=== PATIENT | male | born 1945 | race Caucasian/White ===

== ENCOUNTER 2018-08-17 21:13 | Observation (INO) | payer BC, MEDICARE ==
[~2018-08-17 21:13] MED LIST: Dexamethasone 20 MG/5 ML VIAL ONE; Lidocaine 1% PF 5 ML VIAL ONE; Ondansetron PF 4 MG/2 ML Vial ONE; PROPOFOL 200 MG/20 ML VIAL ONE; ePHEDrine 50 MG/ML VIAL ONE
[2018-08-17] MEDS ORDERED: Fentanyl 100 MCG/2 ML VIAL ONE (21:53)
[2018-08-17] MEDS ORDERED: Bupivacaine PF 0.5% 30 ML VIAL ONE (22:01)
[2018-08-17] MEDS ORDERED: Bacitracin Zinc Ointment 30 gm TUBE ONE (22:01)
[2018-08-17] MEDS ORDERED: Fentanyl 100 MCG/2 ML VIAL SLOW IVP PRN (22:30)
[2018-08-17] MEDS ORDERED: Ondansetron PF 4 MG/2 ML Vial IV PRN (22:30)
[2018-08-17] MEDS ORDERED: Communication Order-Pharmacy FS SCH (22:30)
[2018-08-17] MEDS ORDERED: Meperidine HCl/PF 25 MG/ML VIAL IM PRN (22:36)
[2018-08-17] MEDS ORDERED: Ketorolac Tromethamine 30 MG/ML VIAL IVP PRN (22:36)
[2018-08-18] MEDS ORDERED: Ondansetron HCl/PF 4 MG/2 ML Vial IVP PRN (00:22)
[2018-08-18 01:16] VITALS: BMI 36.6
[2018-08-18 05:08] VITALS: TEMP 98.3
--- NOTE | 2018-08-18 08:44 | RAD ---
EXAM: 3 views of the left middle finger HISTORY: Distal phalanx fracture COMPARISON: 08/17/2018 FINDINGS: Limited intraoperative fluoroscopic views shows 2 K wires spanning the comminuted fracture of the distal phalanx of the middle finger. IMPRESSION: Status post percutaneous pinning of distal phalanx fracture of the middle finger
[2018-08-18] MEDS ORDERED: TETANUS AND DIPHTHERIA TOX/PF 0.5 ML DISP.SYRIN IM SCH (09:00)
[2018-08-18] MEDS ORDERED: Aspirin 81 mg Enteric Coated Tablet PO SCH (09:00)
[2018-08-18] MEDS ORDERED: Vancomycin HCl 1 GM in Premix Bag 1 BAG IVPB SCH (09:00)
[2018-08-18 11:05] VITALS: BP 163/88
--- NOTE | 2018-08-20 08:44 | OP ---
DATE OF PROCEDURE: 08/18/2018 DATE OF SURGERY: Surgery finished on the August 18, 2018, began on August 17, 2018. PREOPERATIVE DIAGNOSES: 1. Left ring finger open, grade 1 distal phalanx fracture secondary to crush injury at home. 2. Nail bed laceration. 3. A 3.0-cm wound, all these at the left ring finger. POSTOPERATIVE DIAGNOSES: 1. Left ring finger open, grade 1 distal phalanx fracture secondary to crush injury at home. 2. Nail bed laceration. 3. A 3.0-cm wound, all these at the left ring finger. PROCEDURES PERFORMED: 1. Removal of nail. 2. Repair of nail bed. 3. Debridement of material associated with open fracture. 4. Debridement of wound. 5. Closure of wound at the end of the procedure. 6. Open reduction and internal fixation of distal phalanx fracture. 7. Application of splint, short arm. 8. C-arm supervision by surgeon. ANESTHESIA: Augmented by 20 mL of 0.5% Marcaine block, metacarpophalangeal joint level at the left ring finger, 10 given prior to procedure and 10 given at closure. DESCRIPTION OF PROCEDURE: After successful general LMA technique, the limb was prepped and draped. Tourniquet time proved to be only 30 minutes. Once we had established site, side, procedure, and matched the consent and history, physical, we exsanguinated the limb, inflated the tourniquet to 250 mmHg pressure, immediately removed the nail. The nail removed revealed that the nail bed laceration was a nearly avulsion from the germinal matrix from the terminal tendon. We then were able to shotgun open the defect at the base of the nail, visualized the fracture, we used excision technique along with a curette, [place] blade, and the lavage of 5 L normal saline and Pulsavac pressure . The patient then had the debridement completed with irrigation of 3 L normal saline and Pulsavac pressure, we used tenotomy scissors to debride deep and incision technique the palmar 2 cm of the total 3 cm wound as well as the radial aspect of the wound. We then sutured the wound edges of the periungual laceration, there was no gross dirt particles remaining, and then we finished the nail bed repair. Once we finished the nail bed repair, we then passed 2 K-wires appropriately in bone from sagittal plane to secure fixation. The patient then had no evidence of anesthetic or operative complication. The tourniquet was deflated, the nail bed repair with a 5-0 chromic was completed, and now the digit was pink. . The patient then left the operating room without evidence of anesthetic or operative complications to recovery room. Please see dictation on Edy Fuller from date of surgery ended at 0020 hours on August 18, 2018. Job ID: [id number]
--- NOTE | 2018-08-20 11:09 | DIS ---
DATE OF ADMISSION: 08/18/2018 DATE OF DISCHARGE: 08/18/2018 ADMISSION DIAGNOSES: 1. Left ring finger grade 1 open distal phalanx fracture secondary to crush injury at home. 2. Nail bed laceration. 3. 3.3 cm wound. DISCHARGE DIAGNOSES: 1. Left ring finger grade 1 open distal phalanx fracture secondary to crush injury at home. 2. Nail bed laceration. 3. 3.3 cm wound. HOSPITAL COURSE: The patient was admitted to [facility] because of open fracture, had an urgent schedule in the emergency room, obtained the necessary despite limited anesthesia capability at this facility, and was able to obtain his surgery where he underwent that same evening removal of his nail, repair of his nail bed, debridement of all material associated with open fracture distal phalanx, debridement of wound, closure of the wound, open reduction internal fixation of distal phalanx, and application of a splint. C-arm was also used and supervised by the surgeon throughout. He went to the floor comfortable, had IV antibiotics for approximately 18 additional hours to include 2 doses of vancomycin. He had no nausea, vomiting, or diarrhea. He was discharged at this time. DISPOSITION: The patient will have a regular diet. Return to work with limitations of wearing a splint on his hand and will follow up in our clinic in 5 days for wound check and dressing change. Job ID: [id number]
--- NOTE | 2018-08-24 05:36 | PQF ---
[facility] POST DISCHARGE CLINICAL DOCUMENTATION IMPROVEMENT CLARIFICATION FORM l Todays Date: 08/24/18 l Patients Name ANGELA MORLEY l l Admit Date 08/18/18 l Disch Date 08/18/18 Bushel Worker Name Courtney Lloyd Email: [email or web address] Cell: [phone] To be completed by Bushel Worker: Present Clinical Indicators - Signs / Symptoms Results and Location in Medical Record [ ] Documentation of: [ ] [ ] Documentation of: [ ] [ ] Documentation of: [ ] [ ] Documentation of: [ ] [ ] Risks [ ] [ ] [ ] Treatment [ ] Removal and repair of nail and nailbed. Debridement of open fracture. ORIF of distal phalanx fracture. Query for the laterality and exact finger being treated. In the Operative Report, Anesthesia Record and ED Provider, left distal phalanx fracture of ring finger. From the H&P, right hand was documented whilst from Finger X-Ray Form, it was left distal phalanx fracture of middle finger was given. [ ] [ ] To be completed by Physician: NAZIA GUARDADO The documentation in this patients record requires clarification to ensure coding compliance and accuracy. Check the appropriate box and include in your discharge summary. [ ] [ ] [ ] [ ] Please check this box if this does not apply to this patient [ ] Unable to determine [ ] Other diagnosis: Review the following information and exercise your independent professional judgment in responding to the clarification. Based upon the clinical findings, risk factors, and treatment, please clarify if you are treating one of the above probable or suspected diagnoses. Physician Signature: Date Time MTDD
== END 2018-08-18 12:30 | disposition home or self-care (01) ==
LOC: ERS 21:13 → SURG A 22:28 → SDC/OP 22:50 → SURG A 08-18 00:12
PROVIDERS: ADMIT Orthopaedic Surgery Hand Surgery; ATTEND Orthopaedic Surgery Hand Surgery
PROC: 0PSV04Z Reposition Left Finger Phalanx with Internal Fixation Device, Open Approach (ICD-10-PCS; principal; 2018-08-17)
PROC: 0HQQXZZ Repair Finger Nail, External Approach (ICD-10-PCS; 2018-08-17)
DX: S67.195A Crushing injury of left ring finger, initial encounter (principal); S62.635B Displaced fracture of distal phalanx of left ring finger, initial encounter for open fracture; E11.9 Type 2 diabetes mellitus without complications; I10 Essential (primary) hypertension; Z79.2 Long term (current) use of antibiotics; Z79.84 Long term (current) use of oral hypoglycemic drugs; Z79.899 Other long term (current) drug therapy; Z96.651 Presence of right artificial knee joint; W23.0XXA Caught, crushed, jammed, or pinched between moving objects, initial encounter
CPT/HCPCS: 11760; 26765; 73140; 76000; 96365; 99284; G0378; J1100; J2001; J2405; J2704; J3010; J3370; J3490; S0020

== ENCOUNTER 2019-05-23 10:28 | Outpatient (CLI) | payer MEDICARE ==
[2019-05-23 12:24] LABS: #Eosinphils 0.1 thou/uL (0.0-0.7); #Lymphocytes 2.2 thou/uL (1.20-3.40); #Monocytes 0.4 thou/uL (0.11-0.59); #Neutrophils 4.4 thou/uL (1.40-6.50); %Basophils 0.6 % (0.0-1.0); %Eosinophils 1.6 % (0.0-10.0); %Lymphocytes 30.9 % (21.0-51.0); %Monocytes 5.8 % (0.0-10.0); %Neutrophils 61.1 % (42.0-75.0); Hemoglobin 14.2 g/dL (14.0-18.0); Mean Corpuscular HGB CONC 33.9 g/dL (32.0-36.0); Mean Corpuscular Hemoglobin 29.3 pg (27.0-31.0); Mean Corpuscular Volume 86.4 fL (78.0-98.0); Mean Platelet Volume 8.7 fL (7.4-10.4); Platelet Count 163 thou/uL (130-400); RBC Distribution Width 12.1 % (11.5-14.5); Red Blood Cell (RBC) Count 4.84 mill/uL (4.70-6.10); White Blood Cell (WBC) Count 7.1 thou/uL (4.8-10.8)
--- NOTE | 2019-05-24 08:59 | EKG ---
Test Reason : Blood Pressure : / mmHG Vent. Rate : 086 BPM Atrial Rate : 086 BPM P-R Int : 196 ms QRS Dur : 136 ms QT Int : 400 ms P-R-T Axes : 070 -66 019 degrees QTc Int : 478 ms Sinus rhythm with Premature atrial complexes Left axis deviation Right bundle branch block Anterior infarct , age undetermined Abnormal ECG No previous ECGs available Confirmed by DR. Gopal GOODSON MD ([id number]) on 05/24/2019 8:59:00 AM Referred By: BK Confirmed By:DR. Gopal GOODSON MD
== END 2019-05-23 10:29 | disposition home or self-care (01) ==
LOC: LABBT 10:28
PROVIDERS: ATTEND Orthopaedic Surgery Hand Surgery
DX: Z01.818 Encounter for other preprocedural examination (principal); L02.512 Cutaneous abscess of left hand; M89.9 Disorder of bone, unspecified
CPT/HCPCS: 85025; 93005; 93010

== ENCOUNTER 2019-05-27 11:32 | Day surgery (SDC) | payer MEDICARE ==
[2019-05-23 11:40] VITALS: BMI 37.3
[~2019-05-27 11:32] MED LIST changes: -Dexamethasone 20 MG/5 ML VIAL ONE; +Ketorolac Tromethamine 30 MG/ML VIAL ONE; +Labetalol HCl 100 MG/20 ML VIAL ONE; -Ondansetron PF 4 MG/2 ML Vial ONE; -ePHEDrine 50 MG/ML VIAL ONE
[2019-05-27] MEDS ORDERED: Bacitracin Zinc Ointment 30 gm TUBE ONE (13:04)
[2019-05-27] MEDS ORDERED: Bupivacaine PF 0.5% 30 ML VIAL ONE (13:04)
[2019-05-27] MEDS ORDERED: Sodium Chloride 0.9% 0 ML ONE (13:04)
[2019-05-27] MEDS ORDERED: Thrombin 5000 UNITS/5 ML VIAL ONE (13:04)
[2019-05-27] MEDS ORDERED: Fentanyl 100 MCG/2 ML VIAL ONE (13:07)
[2019-05-27] MEDS ORDERED: Ketamine 50 MG/ML (10ML VIAL) ONE (13:07)
[2019-05-27] MEDS ORDERED: Dexmedetomidine 200 MCG/2 ML VIAL ONE (13:30)
--- NOTE | 2019-05-27 16:14 | OP ---
DATE OF PROCEDURE: 05/27/2019 PREOPERATIVE DIAGNOSIS: Exostosis at abscess base, left ring finger ulnar aspect distal phalanx. POSTOPERATIVE DIAGNOSIS: Exostosis at abscess base, left ring finger ulnar aspect distal phalanx. FINDINGS: 1. Abscess abscess and the exostosis growing through and taking the place some of the germinal matrix, ulnar aspect of nail. 2. Ulnar one corner of the nail with very immature nail, very thin cover of the sterile matrix. No gross abscess seen. 3. Exostosis 3 x 0.5 cm. PROCEDURES PERFORMED: 1. Left ring finger ulnar distal phalanx debridement of wound down to include bone. 2. Exostosis excision, ostectomy, 3 x 0.15 cm of the same left ring finger ulnar distal phalanx aspect. SPECIMENS SENT: 1. Bone exostosis. 2. Culture. TOURNIQUET TIME: 8 minutes. ESTIMATED BLOOD LOSS: 5 mL. DESCRIPTION OF PROCEDURE: After successful propofol IV sedation, the patient had 10 mL of 0.5% Marcaine block, waited 12 minutes, performed the prep and drape, time-out was done appropriately. We then exsanguinated the limb and inflated the tourniquet to 250 mmHg pressure. He had a 3 mm by 0.5 mm area of bone protruding through the skin where he had previous abscess, so we made a Romy incision over this for 5 mm distal and 1 cm proximal until we found where the bone normal distal phalanx articulated with the exostosis. Here, there was a hole in the germinal matrix. The size of the 5 mm exostosis base, and indeed, there was no germinal matrix once removed at this point. We excised using combination of [place] blade and a rongeur. C-arm showed there was completely gone at the end of this procedure. At this point, the tourniquet was deflated. The mass was sent to the lab. This was a specimen. We took a culture of the area and then irrigated with 500 mL normal saline. Deflated the tourniquet, obtained hemostasis. We closed the wound with interrupted 5-0 nylon except for a 5-0 chromic with the nail and the nail fold met. The patient had a bulky dressing applied and left the operating room without evidence of anesthetic or operative complication. Job ID: [id number]
--- NOTE | 2019-05-27 17:26 | RAD ---
Radiograph left fourth digit 2 views: DATE: 05/27/2019 Time: 1:37 PM HISTORY: 74-year-old male status post traumatic fracture of fourth digit COMPARISON: 08/17/2018 FINDINGS: Fluoroscopic spot images obtained with C-arm in the OR. The K wires fixating the distal phalangeal fr acture have been removed. No change in alignment. IMPRESSION: Interval removal of pins fixating fracture of fourth distal phalanx.
== END 2019-05-27 16:05 | disposition home or self-care (01) ==
LOC: SDC 11:32
PROVIDERS: ATTEND Orthopaedic Surgery Hand Surgery
PROC: 0PBV0ZZ Excision of Left Finger Phalanx, Open Approach (ICD-10-PCS; principal; 2019-05-27)
DX: M89.8X4 Other specified disorders of bone, hand (principal); L02.512 Cutaneous abscess of left hand; I10 Essential (primary) hypertension; E11.9 Type 2 diabetes mellitus without complications; E78.00 Pure hypercholesterolemia, unspecified; Z79.84 Long term (current) use of oral hypoglycemic drugs; Z79.899 Other long term (current) drug therapy
CPT/HCPCS: 76000; 87070; 87076; 87205; 88305; 88311; J0690; J1885; J2001; J2704; J3010; J3490; S0020